=== PATIENT | female | born 1985 | race Caucasian/White ===

== ENCOUNTER 2020-04-03 18:54 | Emergency (ER) | payer BC ==
[2020-04-03] MEDS ORDERED: Lidocaine 1% (PF) 30 ML VIAL ONE (19:36)
[2020-04-03] MEDS ORDERED: HYDROcodone/Acetaminophen 10/325 mg Tablet ONE (19:48)
[2020-04-03] MEDS ORDERED: Ketorolac Tromethamine 30 MG/ML VIAL ONE (19:48)
--- NOTE | 2020-04-03 20:12 | CT ---
CT OF BRAIN PERFORMED WITHOUT CONTRAST ENHANCEMENT: History: Head injury status post a large branch falling off a tree. FINDINGS: The ventricular and cisternal system is within normal limits. No signs of intracerebral hemorrhage or extraaxial fluid collections. A right posterior scalp laceration is seen. IMPRESSION: 1. No acute intracranial abnormalities. 2. Findings telephoned to Dr. Romero at 1924 hours. POS: [facility] [place]
--- NOTE | 2020-04-03 20:14 | CT ---
CT CERVICAL SPINE PERFORMED WITHOUT CONTRAST ENHANCEMENT: History: Neck pain status post large branch from a tree falling on patient. FINDINGS: Vertebral bodies are normal in height. There is some degenerative posterior osteophytic changes and s ome very mild disc narrowing at C5-6. The facets are in normal alignment. Borderline left sided karlos inal narrowing at the C5-6 level. Also slightly asymmetric uncal vertebral changes on the left at C6- 7. There is no CT evidence for fracture. The lung apices appear clear. IMPRESSION: No CT evidence of fracture of the cervical spine. Findings telephoned to Dr. Romero at 1924 hours. POS: [facility] [place]
--- NOTE | 2020-04-03 20:50 | RAD ---
RIGHT SHOULDER THREE VIEWS: History: Shoulder injury status post limb falling on patient. FINDINGS: There are no signs of fracture or dislocation. IMPRESSION: Negative right shoulder. POS: [facility]
== END 2020-04-03 20:21 | disposition short-term general hospital (02) ==
LOC: ERS 18:54
DX: S06.0X9A Concussion with loss of consciousness of unspecified duration, initial encounter (principal); S01.01XA Laceration without foreign body of scalp, initial encounter; S40.011A Contusion of right shoulder, initial encounter; I10 Essential (primary) hypertension; W22.8XXA Striking against or struck by other objects, initial encounter
CPT/HCPCS: 12002; 70450; 72125; 96374; J1885; J2001

== ENCOUNTER 2022-03-11 11:12 | Emergency (ER) | payer BC ==
[2022-03-11] MEDS ORDERED: Metoclopramide HCl 10 MG/2 ML VIAL ONE (12:05)
[2022-03-11] MEDS ORDERED: Sucralfate 1 GM/10 ML UDCUP ONE (12:05)
[2022-03-11 12:28] LABS: Hemoglobin 13.7 g/dL (12.0-16.0); Mean Corpuscular HGB CONC 34.8 g/dL (32.0-36.0); Mean Corpuscular Hemoglobin 32.1 pg (27.0-31.0); Mean Corpuscular Volume 92.2 fl (78.0-98.0); RBC Distribution Width 11.9 % (11.5-14.5); Red Blood Cell (RBC) Count 4.27 mill/uL (4.20-5.40); White Blood Cell (WBC) Count 5.6 10x3/uL (4.8-10.8)
[2022-03-11 12:31] LABS: BHCG - Serum Negative (NEGATIVE); Pregs Control Background? CLEAR/WHITE (CLR/WHITE); Pregs Control Bar Appear? YES (CONTROL BAR)
[2022-03-11 12:43] LABS: ALT (SGPT) 8 U/L (8-55); AST (SGOT) 15 U/L (5-34); Albumin 4.4 g/dL (3.5-5.0); Alkaline Phosphatase 62 U/L (40-110); Anion Gap 16 mmol/L (10-20); BUN (Urea Nitrogen) 8 mg/dL (7.0-18.7); Bilirubin, Total 1.2 mg/dL (0.2-1.2); Calc. Creatinine Clearance 0 mL/min (70-130); Calcium 9.5 mg/dL (7.8-10.44); Carbon Dioxide 22 mmol/L (22-29); Chloride 107 mmol/L (98-107); Estimated GFR 93; Globulin 3.1 g/dL (2.4-3.5); Glucose 91 mg/dL (70-105); Lipase 9 U/L (8-78); Potassium 3.9 mmol/L (3.5-5.1); Protein, Total 7.5 g/dL (6.0-8.3); Sodium 141 mmol/L (136-145)
[2022-03-11 12:46] LABS: Eosinophils 1 % (0-10); Lymphocytes 27 % (21-51); MDiff Complete? YES; Mean Platelet Volume 10.6 fL (7.4-10.4); Monocytes 5 % (0-10); Neutrophil 62 % (42-75); Platelet Count 109 10x3/uL (130-400); Platelet Morphology Comment PLT clumps seen-LOW; RBC Morphology Normal; Reactive Lymphocytes 5 % (0-10)
[2022-03-11] MEDS ORDERED: Iopamidol-370 76% 500 ML 1 ML ONE (15:14)
== END 2022-03-11 14:30 | disposition home or self-care (01) ==
LOC: ERS 11:12
DX: R10.13 Epigastric pain (principal); R11.0 Nausea; I10 Essential (primary) hypertension
CPT/HCPCS: 36415; 74177; 80053; 83690; 83735; 84703; 85025; 96365; J2765; Q9967

== ENCOUNTER 2022-03-21 11:24 | Outpatient (CLI) | payer BC | END 2022-03-21 11:25 | disposition home or self-care (01) | LOC: BICRAD 11:24 | PROVIDERS: ATTEND Family Medicine | DX: R63.4 Abnormal weight loss (principal) | CPT/HCPCS: 71046 ==